=== PATIENT | male | born 1980 | race Caucasian/White ===

== ENCOUNTER 2017-10-05 03:15 | Emergency (ER) | payer BC ==
[~2017-10-05] VITALS: Ht 177.8 cm; Wt 81.2 kg
[2017-10-05 03:38] VITALS: BP_SYST 147
[2017-10-05] MEDS ORDERED: NACL 0.9% 1,000 ML IV SCH (03:56)
[2017-10-05] MEDS ORDERED: ONDANSETRON HCL 4 MG/2 ML VIAL IVP ONE (04:00)
[2017-10-05] MEDS ORDERED: CLINDAMYCIN 900 mg/50mL D5W 50 ML IV ONE (04:00)
[2017-10-05] MEDS ORDERED: KETOROLAC TROMETHAMINE 30 MG VIAL IVP ONE (04:00)
[2017-10-05] MEDS ORDERED: MORPHINE 2 MG/ML INJ. SYRINGE IVP ONE (04:00)
[2017-10-05 05:11] LABS: BASOPHILS % (AUTO) 0.4 % (0.0-2.0); EOSINOPHILS # (AUTO) 0.2 K/uL (0.0-0.4); EOSINOPHILS % (AUTO) 2.5 % (0.0-4.0); HEMATOCRIT 44.7 % (36-54); HEMOGLOBIN 15.2 g/dL (14.0-18.0); LYMPHOCYTES % (AUTO) 31.4 % (20.5-51.5); MEAN CORPUSCULAR HEMOGLOBIN 32 pg (27-31); MEAN CORPUSCULAR HGB CONC 34 % (32-36); MEAN CORPUSCULAR VOLUME 94 fL (79.0-98.0); MONOCYTES # (AUTO) 0.5 K/uL (0.0-1.0); MONOCYTES % (AUTO) 8.6 % (1.7-9.3); NEUTROPHILS # (AUTO) 3.7 K/uL (1.8-7.7); NEUTROPHILS % (AUTO) 57.1 % (40.0-70.0); PLATELET COUNT (AUTO) 281 K/uL (130-430); RED BLOOD CELL COUNT(AUTO) 4.78 MIL/uL (4.2-6.2); RED CELL DISTRIBUTION WIDTH 11.8 % (9.0-15.0); WHITE BLOOD COUNT (AUTO) 6.4 K/uL (4.8-10.8)
[2017-10-05 05:16] LABS: ANION GAP 7 (5-15); CHLORIDE 105 mmol/L (98-107); CREATININE 0.87 mg/dL (0.55-1.30); GLUCOSE 112 mg/dL (70-99); POTASSIUM 3.9 mmol/L (3.5-5.1); SODIUM SERUM 138 mmol/L (136-145); UREA NITROGEN, BLOOD 10 mg/dL (8-21)
[2017-10-05 05:23] LABS: ALANINE AMINOTRANSFERASE 24 U/L (12-78); ALBUMIN 4.1 g/dL (3.4-4.8); ASPARTATE AMINOTRANSFERASE 14 U/L (10-37); TOTAL BILIRUBIN 0.6 mg/dL (0.0-1.0)
[2017-10-05 05:25] LABS: GFR AFRICAN AMERICAN 127 mL/min (>90)
[2017-10-05 05:30] LABS: C-REACTIVE PROTEIN QUANT < 0.2 mg/dL (0-0.5)
[2017-10-05 06:20] VITALS: BP_SYST 135
== END 2017-10-05 06:20 | disposition home or self-care (01) ==
LOC: SED 03:15
DX: M79.2 Neuralgia and neuritis, unspecified (principal); L03.114 Cellulitis of left upper limb
CPT/HCPCS: 36415; 73090; 80053; 85025; 86140; 87040; 96365; 96375; 99285; J1885; J2270; J2405; J3490; J7030